=== PATIENT | male | born 1960 | race Caucasian/White ===

== ENCOUNTER → 2020-08-09 13:37 | Outpatient (CLI) | payer BC, SELFPAY ==
[2020-08-09 15:58] LABS: COVID19 -Nasal RAPID Negative (Negative)
== END ==
PROVIDERS: Visit Provider Physician Assistant
DX: R51.9 Headache, unspecified (principal)
CPT/HCPCS: 87635

== ENCOUNTER → 2020-08-11 12:04 | Outpatient (CLI) | payer BC, SELFPAY ==
[2020-08-11 13:01] LABS: Add Manual Diff / Slide Review NO; Basophils Absolute Auto 100 /uL (0-100); Basophils Percent Auto 1.1 % (0-2); Eosinophils Absolute Auto 200 /uL (0-450); Hematocrit 44.2 % (41-53); Hemoglobin 14.9 g/dL (13.5-17.5); Lymphocytes Absolute Auto 1500 /uL (1100-4500); Lymphocytes Percent Auto 26.2 % (25-40); Mean Corpuscular HGB Conc 33.7 % (30-36); Mean Corpuscular Hemoglobin 29.5 PG (26-34); Mean Corpuscular Volume 87.4 fL (80-100); Monocytes Absolute Auto 500 /uL (0-900); Monocytes Percent Auto 7.9 % (3-14); Neutrophils Absolute Auto 3600 /uL (1500-7000); Neutrophils Percent Auto 61.8 % (50-75); Platelet Count 214 X10^3/uL (150-400); Red Blood Cell Count 5.06 X10^6/uL (4.5-5.9); Red Cell Distribution Width 13.6 % (11.6-14.8); White Blood Cell Count 5.9 X10^3/uL (4.5-11.0)
[2020-08-11 13:12] LABS: Hemoglobin A1C% w Est Avg Glu 5.6 % (4.0-6.0)
[2020-08-11 13:39] LABS: Alanine Aminotransferase 21 IU/L (<50); Albumin 4.4 g/dL (3.5-5.0); Albumin Globulin Ratio 1.3 (1.0-2.8); Alkaline Phosphatase 40 U/L (38-126); Aspartate Aminotransferase 27 IU/L (17-59); BUN Creatinine Ratio 17.9 (6-22); Bilirubin Total 0.4 mg/dL (0.2-1.3); Blood Urea Nitrogen 20 mg/dL (9-20); Calcium 9.3 mg/dL (8.4-10.2); Carbon Dioxide 25 mmol/L (22-32); Chloride 107 mmol/L (98-107); Cholesterol 248 mg/dL (140-199); Estimated Glomerular Filt Rate > 60.0 mL/min (>60); Globulin 3.5 g/dL (1.7-4.1); Glucose 97 mg/dL (70-100); HDL Cholesterol 44 mg/dL (40-60); HEMOLYSIS < 15 (0-50); LDL Cholesterol Calculated 157 mg/dL (<100); Potassium 4.6 mmol/L (3.4-5.1); Sodium 139 mmol/L (137-145); Total Protein 7.9 g/dL (6.3-8.2); Triglycerides 233 mg/dL (35-150)
[2020-08-11 14:06] LABS: Prostate Specific Antigen Scrn 0.754 ng/mL (0.1-4.0)
== END ==
PROVIDERS: PCP Registered Nurse; Referring Provider Registered Nurse; Visit Provider Registered Nurse
DX: Z00.00 Encounter for general adult medical examination without abnormal findings (principal); R51.9 Headache, unspecified; Z12.5 Encounter for screening for malignant neoplasm of prostate; I10 Essential (primary) hypertension; R73.03 Prediabetes; Z82.49 Family history of ischemic heart disease and other diseases of the circulatory system
CPT/HCPCS: 36415; 80053; 80061; 83036; 85025; G0103

== ENCOUNTER 2020-09-17 18:39 | Observation (INO) | payer BC, SELFPAY ==
[2020-09-17] VITALS (7 sets, daily range): BP systolic 121–144; BP diastolic 65–77; PULSE 81–90; RESP 14–20; TEMP 36.6–36.7; O2SAT 97–100; BMI 31.1; BMI 30.9
--- NOTE | 2020-09-17 19:04 | DI.US.S_ITS ---
PROCEDURE: US ABDOMEN LIMITED INDICATIONS: ruq TECHNIQUE: Real-time focused scanning was performed of the abdomen, with image documentation. COMPARISON: None. FINDINGS: The liver is moderately hyperechoic and difficult to penetrate with ultrasound. The size is normal. The margin is not well seen. There are tiny stones layering dependently in the proximal gallbladder. The wall is of normal thickness at 1.9 mm. According to the technologist there was a positive sonographic Perez's sign. No pericholecystic fluid. The common duct is normal caliber at 3 mm. IMPRESSION: 1. Cholelithiasis with equivocal findings for acute cholecystitis. Lack of wall thickening is present though there may be early cholecystitis. 2. Moderate hepatic steatosis or other intrinsic liver disease. Dictated by: Eva Chowdary M.D. on 09/17/2020 at 21:12 Approved by: Eva Chowdary M.D. on 09/17/2020 at 21:14
--- NOTE | 2020-09-17 19:07 | PC.NURSE ---
Ignore discharge note at 1900, charted on wrong pt.
[2020-09-17 19:18] LABS: Add Manual Diff / Slide Review NO; Basophils Absolute Auto 0 /uL (0-100); Basophils Percent Auto 0.4 % (0-2); Eosinophils Absolute Auto 200 /uL (0-450); Eosinophils Percent Auto 1.6 % (2-4); Hematocrit 44.3 % (41-53); Hemoglobin 14.8 g/dL (13.5-17.5); Lymphocytes Absolute Auto 1400 /uL (1100-4500); Lymphocytes Percent Auto 14.2 % (25-40); Mean Corpuscular HGB Conc 33.3 % (30-36); Mean Corpuscular Hemoglobin 29.3 PG (26-34); Mean Corpuscular Volume 87.9 fL (80-100); Monocytes Absolute Auto 800 /uL (0-900); Monocytes Percent Auto 8.2 % (3-14); Neutrophils Absolute Auto 7400 /uL (1500-7000); Neutrophils Percent Auto 75.6 % (50-75); Platelet Count 218 X10^3/uL (150-400); Red Blood Cell Count 5.05 X10^6/uL (4.5-5.9); Red Cell Distribution Width 13.6 % (11.6-14.8); White Blood Cell Count 9.8 X10^3/uL (4.5-11.0)
[2020-09-17 19:23] LABS: Prothrombin Time 10.9 SECONDS (10.1-12.7)
[2020-09-17 19:26] LABS: PTT Partial Thromboplastin Tim 31 SECONDS (26.4-36.2)
[2020-09-17 19:28] LABS: Alanine Aminotransferase 189 IU/L (<50); Albumin 4.6 g/dL (3.5-5.0); Albumin Globulin Ratio 1.3 (1.0-2.8); Alkaline Phosphatase 67 U/L (38-126); Aspartate Aminotransferase 225 IU/L (17-59); BUN Creatinine Ratio 17.9 (6-22); Bilirubin Total 1.2 mg/dL (0.2-1.3); Blood Urea Nitrogen 20 mg/dL (9-20); Calcium 10.6 mg/dL (8.4-10.2); Carbon Dioxide 30 mmol/L (22-32); Chloride 101 mmol/L (98-107); Estimated Glomerular Filt Rate > 60.0 mL/min (>60); Globulin 3.5 g/dL (1.7-4.1); Glucose 114 mg/dL (70-100); HEMOLYSIS < 15 (0-50); Lipase 146 U/L (23-300); Sodium 137 mmol/L (137-145); Total Protein 8.1 g/dL (6.3-8.2)
--- NOTE | 2020-09-17 20:42 | ED_ITS ---
HPI - Abdominal Pain General Chief Complaint: Abdominal Pain Stated Complaint: Upset stomach, thinks galbladder Time Seen by Provider: 09/17/20 19:04 Source: patient Mode of arrival: Ambulatory Limitations: no limitations History of Present Illness HPI narrative: Patient is a 59-year-old male who presents with epigastric and right upper quadrant pain which started today. It seems to radiate right around to his back. He has no chest pain or shortness of breath. He occasionally has felt nauseated but no vomiting. Pain is currently much better than what it was previously. MD complaint: abdominal pain Pain Consistency: intermittent and now resolved Quality: stabbing and aching Radiation: back Migration to: no migration Relieving factors: nothing Related Data Home Medications Medication Instructions Recorded Confirmed fluticasone propionate 45 2 puff INHALATION BID PRN g 08/25/20 09/17/20 mcg-salmeterol 21 mcg/actuation HFA inhaler ascorbate calcium (vitamin C) 500 mg PO DAILY 09/17/20 09/17/20 cholecalciferol (vitamin D3) 5,000 unit PO DAILY 09/17/20 09/17/20 [Vitamin D3] Previous Rx's Medication Instructions Recorded albuterol sulfate 90 mcg/actuation 2 puff INHALATION Q4-6H PRN #18 g 08/11/20 aerosol inhaler losartan 50 mg tablet 50 mg PO DAILY 30 Days #30 tab 08/11/20 simvastatin 20 mg tablet 20 mg PO BEDTIME 30 Days #30 tab 08/11/20 Allergies Allergy/AdvReac Type Severity Reaction Status Date / Time No Known Drug Allergies Allergy Verified 09/17/20 18:46 Review of Systems Review of Systems Narrative: GENERAL: Denies chills, fatigue, malaise, fever, sweats, travel HEENT: Denies sinus pain, ear pain, sore throat, difficulty swallowing, neck pain RESPIRATORY: Denies dyspnea, cough, wheezing, hemoptysis, sputum. CARDIOVASCULAR: Denies chest pain, palpitations, orthopnea, edema GASTROINTESTINAL: See HPI : Denies dysuria, frequency, incontinence, hematuria, urinary retention, flank pain. MUSCULOSKELETAL: Denies weakness, joint pain, or bony pain SKIN: No rash, no erythema, no pruritus NEUROLOGIC: Denies weakness, dizziness, headache, numbness, change in speech, confusion PSYCHIATRIC: No concerning psychosocial issues. 12 point review of systems is negative except for those stated above and HPI Patient History Medical History (Updated 09/17/20 @ 21:47 by Kathi Roberts DO) Asthma (~1962) Essential hypertension Fractures (~1994) Mixed dyslipidemia No active medical problems Shoulder pain (~2017) Tinnitus (~2013) Surgical History Anesthesia History of knee surgery History of sinus surgery (~2011) History of umbilical hernia repair (~2009) Family History (Updated 09/17/20 @ 21:09 by Nima Graff MD) Father History of heart disease Mother Diabetes mellitus Social History household members: spouse Smoking Status: Former smoker alcohol intake: current Smoking Status: Unknown if ever smoked alcohol intake frequency: a few times a month Substance Use Type: does not use Exam Initial Vital Signs Initial Vital Signs: Vital Signs Temperature 98.1 F 09/17/20 18:46 Pulse Rate 90 09/17/20 18:46 Respiratory Rate 20 09/17/20 18:46 Blood Pressure 144/70 H 09/17/20 18:46 Pulse Oximetry 97 09/17/20 18:46 GENERAL: Well-appearing, well-nourished and in no acute distress. HEENT: Head atraumatic,EOMI, pupils reactive, face symmetric, moist mucous membranes CARDIOVASCULAR: Regular rate and rhythm without murmurs, rubs or gallops. RESPIRATORY: Breath sounds equal bilaterally, no wheezes rales or rhonchi. ABDOMEN: Soft, positive Perez sign tender right upper quadrant no guarding or rebound EXTREMITIES: Normal range of motion, no clubbing or edema. Neurovascularly intact NEUROLOGICAL: Alert and oriented x4.Normal gait and speech. Cranial nerves II through XII grossly intact. SKIN: Warm, dry, no laceration, no petechiae, no rashes or lesions. Course Orders Ordered: ED Orders 09/17/20 18:47 EKG-12 Lead Stat 09/17/20 19:04 US abdomen limited Stat Complete Blood Count AUTO DIFF Stat Comprehensive Metabolic Panel Stat Lipase Stat Partial Thromboplastin Time Stat Prothrombin Time INR Stat Albuterol (Albuterol 2.5 Mg/3 Ml Neb (Adult)) 2.5 mg INH [id number] JACQUI Hydromorphone HCl (Hydromorphone 1 Mg Inj) 1 mg IV Q4H PRN PRN Reason: Pain, Moderate (4-6) Lactated Ringer's (Lactated Ringers) 1,000 mls @ 125 mls/hr IV CONT [facility] Last Admin: 09/17/20 22:13 Dose: 125 mls/hr Documented by: KIERAN Cefotetan Disodium 2 gm/ (Sodium Chloride) 100 mls @ 200 mls/hr IV Q12H [facility] Last Admin: 09/17/20 22:12 Dose: 200 mls/hr Documented by: KIERAN Ondansetron HCl (Ondansetron 4 Mg/2 Ml Inj) 4 mg IV Q4HR PRN PRN Reason: Nausea And Vomiting Simvastatin (Simvastatin 20 Mg Tablet) 20 mg PO BEDTIME [facility] Last Admin: 09/17/20 22:12 Dose: 20 mg Documented by: KIERAN Discontinued Medications Enoxaparin Sodium (Enoxaparin 40 Mg/0.4 Ml Syringe) 40 mg SUBCUT NOW ONE Stop: 09/17/20 21:41 Last Admin: 09/17/20 22:12 Dose: 40 mg Documented by: KIERAN Vital Signs Vital signs: Vital Signs - 8 hr 09/17/20 18:46 09/17/20 19:12 09/17/20 19:30 Temperature 98.1 F Pulse Rate 90 86 83 Respiratory Rate 20 19 16 Blood Pressure 144/70 H Pulse Oximetry 97 100 97 09/17/20 20:00 09/17/20 20:30 09/17/20 20:41 Temperature Pulse Rate 81 87 83 Respiratory Rate 14 18 16 Blood Pressure 121/65 Pulse Oximetry 97 98 97 MDM - Abdominal Pain Lab Data Attestation: I reviewed the patient's lab results. Result diagrams: 09/17/20 19:04 09/17/20 19:04 Labs: Lab Results 09/17/20 09/17/20 09/17/20 Range/Units 19:04 19:04 19:04 WBC 9.8 (4.5-11.0) X10^3/uL RBC 5.05 (4.5-5.9) X10^6/uL Hgb 14.8 (13.5-17.5) g/dL Hct 44.3 (41-53) % MCV 87.9 (80-100) fL MCH 29.3 (26-34) PG MCHC 33.3 (30-36) % RDW 13.6 (11.6-14.8) % Plt Count 218 (150-400) X10^3/uL Neut % (Auto) 75.6 H (50-75) % Lymph % (Auto) 14.2 L (25-40) % [place] % (Auto) 8.2 (3-14) % Eos % (Auto) 1.6 L (2-4) % Baso % (Auto) 0.4 (0-2) % Neut # (Auto) 7400 H (0372-5849) /uL Lymph # (Auto) 1400 (7154-8538) /uL [place] # (Auto) 800 (0-900) /uL Eos # (Auto) 200 (0-450) /uL Baso # (Auto) 0 (0-100) /uL PT 10.9 (10.1-12.7) SECONDS INR 1.0 (0.9-1.3) APTT 31 (26.4-36.2) SECONDS Sodium 137 (137-145) mmol/L Potassium 4.0 (3.4-5.1) mmol/L Chloride 101 (98-107) mmol/L Carbon Dioxide 30 (22-32) mmol/L BUN 20 (9-20) mg/dL Creatinine 1.12 (0.66-1.25) mg/dL Estimated GFR > 60.0 (>60) mL/min BUN/Creatinine Ratio 17.9 (6-22) Glucose 114 H (70-100) mg/dL Calcium 10.6 H (8.4-10.2) mg/dL Total Bilirubin 1.2 (0.2-1.3) mg/dL AST 225 H (17-59) IU/L ALT 189 H (<50) IU/L Alkaline Phosphatase 67 (38-126) U/L Total Protein 8.1 (6.3-8.2) g/dL Albumin 4.6 (3.5-5.0) g/dL Globulin 3.5 (1.7-4.1) g/dL Albumin/Globulin Ratio 1.3 (1.0-2.8) Lipase 146 (23-300) U/L Point of care testing: Urine Dip Bedside Urine Glucose Negative Bedside Urine Bilirubin - Negative Bedside Urine Ketone - Negative Urine Specific [place] 1.025 Bedside Urine Occult Blood - Negative Bedside Urine pH 6.0 Bedside Urine Protein - Negative Bedside Urine Urobilinogen +/- 1mg Bedside Urine Nitrite - Negative Bedside Urine Leukocytes - Negative Esterase Imaging Data US - abdomen: Radiologist's Impression: PROCEDURE: US ABDOMEN LIMITED INDICATIONS: ruq TECHNIQUE: Real-time focused scanning was performed of the abdomen, with image documentation. COMPARISON: None. FINDINGS: The liver is moderately hyperechoic and difficult to penetrate with ultrasound. The size is normal. The margin is not well seen. There are tiny stones layering dependently in the proximal gallbladder. The wall is of normal thickness at 1.9 mm. According to the technologist there was a positive sonographic Perez's sign. No pericholecystic fluid. The common duct is normal caliber at 3 mm. IMPRESSION: 1. Cholelithiasis with equivocal findings for acute cholecystitis. Lack of wall thickening is present though there may be early cholecystitis. 2. Moderate hepatic steatosis or other intrinsic liver disease. Dictated by: Eva Chowdary M.D. on 09/17/2020 at 21:12 ECG Data Attestation: I personally reviewed and interpreted this ECG as follows: Prior ECG tracings: not available for review Interpretation: Normal sinus rhythm rate 85 p.r. interval 162 QRS [address] changes or T-wave inversions MDM Narrative Medical decision making narrative: Patient is not currently having any abdominal pain is overall feeling much better. Ultrasound does confirm a cholelithiasis with acute cholecystitis. He is afebrile without leukocytosis. Liver enzymes are elevated bilirubin is within normal limits. Dr. Graff is in ED to see and evaluate patient and will admit patient. Discharge Plan Departure Patient Disposition: Admitted As Inpatient Clinical Impression: Cholelithiasis Qualifiers: Cholelithiasis location: other site Biliary obstruction: without biliary obstruction Qualified Code(s): K80.80 - Other cholelithiasis without obstruction Admit Date/Time: 09/17/20 20:59 Admit Provider: Nima Graff
--- NOTE | 2020-09-17 21:05 | PM.HP.1 ---
History of Present Illness History of Present Illness Date Patient Seen: 09/17/20 Time Patient Seen: 21:05 Date of Onset of Symptoms: 09/17/20 Chief complaint: Upset stomach, thinks galbladder Narrative: The patient is a gentleman who developed epigastric pain earlier today the progressively became worse and radiated to his right upper quadrant and right side. He has had intermittent pain for months but nothing quite this severe. Usually it was epigastric pain and that was transient and lasted a short period and gradually faded. This however was persistent and worsening and therefore he came to the emergency room. When he would lay down he became nauseated and sitting up he felt better. He never vomited. Last solid food was earlier today. He has been drinking water through the day. The only prior operation on his abdomen was an umbilical hernia repair. He did have a colonoscopy for screening purposes about 7 years it was normal. He has never been jaundiced. Patient History Medical History (Updated 09/17/20 @ 21:25 by Nima Graff MD) Asthma (~1962) Essential hypertension Fractures (~1994) Mixed dyslipidemia No active medical problems Shoulder pain (~2017) Tinnitus (~2013) Surgical History Anesthesia History of knee surgery History of sinus surgery (~2011) History of umbilical hernia repair (~2009) Family & Social History Family History (Updated 09/17/20 @ 21:09 by Nima Graff MD) Father History of heart disease Mother Diabetes mellitus Safety & Behavioral: Feels Safe in Current Yes Environment Been Physically Hurt or No Threatened By a Person Tobacco & Substance use: Smoking Status Unknown if ever smoked alcohol intake frequency a few times a month Substance Use Type does not use Meds Home Medications and Allergies Home Medications Medication Instructions Recorded Confirmed Type albuterol sulfate 90 mcg/actuation 2 puff INHALATION Q4-6H PRN #18 g 08/11/20 09/17/20 Rx aerosol inhaler losartan 50 mg tablet 50 mg PO DAILY 30 Days #30 tab 08/11/20 09/17/20 Rx simvastatin 20 mg tablet 20 mg PO BEDTIME 30 Days #30 tab 08/11/20 09/17/20 Rx fluticasone propionate 45 2 puff INHALATION BID PRN g 08/25/20 09/17/20 History mcg-salmeterol 21 mcg/actuation HFA inhaler Allergies Allergy/AdvReac Type Severity Reaction Status Date / Time No Known Drug Allergies Allergy Verified 09/17/20 18:46 Review of Systems Review of Systems Narrative: Patient wears glasses. He denies double vision or pain in his eyes. No earaches or sore throats. No trouble swallowing. No tooth aches. He has a fractured filling right now. Patient does suffer from seasonal asthma. He thinks it is related to allergens. No cough or cold. No heart murmurs chest pain or heart problems. He actually had a stress test a few years ago that he reports was normal. Patient denies black or bloody bowel movements. No dysuria hematuria or history of kidney stones. He has noticed recently that he has urgency when urinating. He occasionally gets up in the middle the night after about 6 hours of sleep. No seizures or blackouts. No anxiety BD does suffer from mild depression and but is not taking medication for it. He does see a mental health provider however. Patient has no unusual bruising or bleeding. No unusual skin conditions or itching. He has no problems with this thyroid pancreas that he is aware of. Exam Vital Signs (past 8 hours): - 09/17/20 18:46 09/17/20 19:12 09/17/20 19:30 Temperature 98.1 F Pulse Rate 90 86 83 Respiratory Rate 20 19 16 Blood Pressure 144/70 H Pulse Oximetry 97 100 97 09/17/20 20:00 09/17/20 20:30 09/17/20 20:41 Temperature Pulse Rate 81 87 83 Respiratory Rate 14 18 16 Blood Pressure 121/65 Pulse Oximetry 97 98 97 Oxygen Delivery Method Room Air Narrative Exam Narrative: Cooperative gentleman no apparent distress. Eyes are nonicteric. Pupils equal round reactive to light. Conjunctiva pink. Ears without lesion. Nasal septum is midline. Oral mucosa is a little dry. Furrows noted in his tongue. Neck is some what full. I feel no nodes in the neck or supraclavicular areas. Trachea is midline mobile. No obvious enlargement or tenderness in his thyroid. His lungs are clear to auscultation without rales or rhonchi. Equal to percussion. Heart regular rate and rhythm without murmur gallop. No bruit in the neck. No heave lift or thrill. Patient has bilateral gynecomastia. Abdomen is rounded protuberant and soft. He may have some slight tenderness in the right upper quadrant with deep palpation. No ventral hernias appreciated. Liver and spleen are not palpably enlarged though his size would preclude anything but the most obvious abnormality. His extremities are without cyanosis clubbing or edema. He is somewhat hirsute. No open lesions of his skin. Skin texture and turgor is 2+. He is alert and oriented x3. Speech rate and content are appropriate. Affect is appropriate. Objective Imaging US - abdomen: My impression: Thin walled gallbladder with multiple small stones in the distal gallbladder. Labs Result Diagrams: 09/17/20 19:04 09/17/20 19:04 Labs: Laboratory Results - last 24 hr 09/17/20 09/17/20 09/17/20 19:04 19:04 19:04 WBC 9.8 RBC 5.05 Hgb 14.8 Hct 44.3 MCV 87.9 MCH 29.3 MCHC 33.3 RDW 13.6 Plt Count 218 Neut % (Auto) 75.6 H Lymph % (Auto) 14.2 L [place] % (Auto) 8.2 Eos % (Auto) 1.6 L Baso % (Auto) 0.4 Neut # (Auto) 7400 H Lymph # (Auto) 1400 [place] # (Auto) 800 Eos # (Auto) 200 Baso # (Auto) 0 PT 10.9 INR 1.0 APTT 31 Sodium 137 Potassium 4.0 Chloride 101 Carbon Dioxide 30 BUN 20 Creatinine 1.12 Estimated GFR > 60.0 BUN/Creatinine Ratio 17.9 Glucose 114 H Calcium 10.6 H Total Bilirubin 1.2 AST 225 H ALT 189 H Alkaline Phosphatase 67 Total Protein 8.1 Albumin 4.6 Globulin 3.5 Albumin/Globulin Ratio 1.3 Lipase 146 Assessment & Plan Assessment and plan (1) Essential hypertension: Problem details: Continue losartan Status: Chronic (2) Mixed dyslipidemia: Problem details: Continue simvastatin Status: Chronic (3) Asthma: Problem details: Seasonal. Will treat with albuterol nebulizer preoperatively. Qualifiers: Asthma severity: mild Asthma persistence: intermittent Asthma complication type: uncomplicated Qualified Code(s): J45.20 - Mild intermittent asthma, uncomplicated Status: Chronic (4) Cholelithiasis and cholecystitis without obstruction: Problem details: Patient has classic symptomatology for gallbladder disease and ultrasound showing stones. It is possible that he has an obstructed cystic duct though it is not clear from the study. I suspect that this is a chronic problem though he may have an acute exacerbation. I have talked to him about his options which include going home and having his operation an elective fashion and adjusting his diet or staying and having the operation which would be my recommendation given his acute pain and the likelihood of recurrence with delay. Also has elevated liver function tests are bit worrisome to me that was bilirubin is normal. I have talked to him about a laparoscopic cholecystectomy and possible/probable cholangiogram. Risks of bleeding, infection, hernia at the incision near the umbilicus, injury to internal organs or ducts which would require major operation to repair, and bile leakage were all discussed with him. I discussed possible consequences of removing his gallbladder such as diarrhea or intolerance to certain foods which are usually self-limited though not always. I talked to him about restrictions on his activity after the operation. 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 All questions were answered and he wished to proceed. He has been placed on the OR schedule for tomorrow. Status: Acute
[2020-09-17] MEDS: CEFOTETAN 2 GM in SODIUM CHLORIDE 0.9% 100 ML 200 ML IV (22:12)
[2020-09-17] MEDS: SIMVASTATIN 20 MG TABLET PO (22:12)
[2020-09-17] MEDS: ENOXAPARIN 40 MG/0.4 ML SYRINGE SUBCUT (22:12)
[2020-09-17] MEDS: LACTATED RINGERS 1,000 ML 125 ML IV (22:13)
[2020-09-17 22:16] LABS: COVID19 -Nasal RAPID Negative (Negative)
[2020-09-18] VITALS (21 sets, daily range): BP systolic 92–140; BP diastolic 42–85; PULSE 73–117; RESP 10–20; TEMP 36.4–37.4; O2SAT 90–97; BMI 30.9
--- NOTE | 2020-09-18 | PATH_ITS ---
[facility] Accession Number: [id number] . 01 Material submitted: . gallbladder - GALLBLADDER . 02 Diagnosis: Gallbladder, Cholecystectomy: Chronic cholecystitis with cholelithiasis. Negative for dysplasia or malignancy. [facility] 09/24/2020 1329 Local . 02 Electronically signed: . Iris Perez MD, Pathologist NPI- [id number] . 01 Gross description: . The specimen is received in formalin, labeled gallbladder and consists of a 7.5 x 4.0 x 3.0 cm intact gallbladder with a 0.2 cm in diameter cystic duct. The serosa is scott-green and smooth. Opening reveals green viscous bile with multiple black, smooth to multifaceted choleliths ranging from 0.5 to 1.0 cm. The mucosa is scott-green and velvety. The wall thickness measures 0.2 cm. A 0.5 x 0.4 x 0.2 cm scott-pink pericystic lymph node is identified. [employer] sections are submitted, to include the en face cystic duct margin and intact lymph node, in cassette A1. ([id number]) /[facility] 09/22/2020 1622 Local . 02 Pathologist provided ICD-10: K80.10 . 02 CPT . 762124 Performed at: 01 [facility] [address], [place], [place] [id number] MD Kar Aguilar MD Phone: [phone] Performed at: 02 [facility] [address] [place], [place] [id number] MD Iris Perez MD Phone: [phone]
--- NOTE | 2020-09-18 | DI.RAD.S_ITS ---
PROCEDURE: XR CHOLANGIOGRAM OPERATIVE INDICATIONS: CHOLANGIOGRAM COMPARISON: [facility], , US ABDOMEN LIMITED, 09/17/2020, 19:39. FINDINGS: Biliary ducts: The surgeon injected contrast into the biliary ducts after cannulation of the cystic duct stump. Visualized intra- and extrahepatic bile ducts are normal in caliber, without strictures. No intraluminal filling defects to suggest retained ductal stones or sludge. No evidence for iatrogenic ductal injury. Duodenum: Contrast flows promptly through the sphincter of Oddi into the duodenum, which appears normal in caliber. IMPRESSION: Normal intraoperative cholangiogram. Dictated by: Tara Ayala M.D. on 09/18/2020 at 9:32 Approved by: Tara Ayala M.D. on 09/18/2020 at 9:36
--- NOTE | 2020-09-18 06:03 | RT ---
Went to give pt's 0700 albuterol. Pt declined and would like to have it as PRN. Pt is not in respiratory distress, RA SpO2 98%. Clear BS t/o. Recommending to change albuterol frequency to PRN.
[2020-09-18 06:26] LABS: Add Manual Diff / Slide Review NO; Basophils Absolute Auto 0 /uL (0-100); Basophils Percent Auto 0.6 % (0-2); Eosinophils Absolute Auto 100 /uL (0-450); Eosinophils Percent Auto 2.5 % (2-4); Hematocrit 45.2 % (41-53); Hemoglobin 14.9 g/dL (13.5-17.5); Lymphocytes Absolute Auto 1100 /uL (1100-4500); Lymphocytes Percent Auto 21.4 % (25-40); Mean Corpuscular HGB Conc 32.9 % (30-36); Mean Corpuscular Hemoglobin 28.9 PG (26-34); Mean Corpuscular Volume 87.8 fL (80-100); Monocytes Absolute Auto 500 /uL (0-900); Monocytes Percent Auto 10.2 % (3-14); Neutrophils Absolute Auto 3400 /uL (1500-7000); Neutrophils Percent Auto 65.3 % (50-75); Platelet Count 190 X10^3/uL (150-400); Red Blood Cell Count 5.14 X10^6/uL (4.5-5.9); Red Cell Distribution Width 13.4 % (11.6-14.8); White Blood Cell Count 5.2 X10^3/uL (4.5-11.0)
[2020-09-18 06:35] LABS: Alanine Aminotransferase 356 IU/L (<50); Albumin Globulin Ratio 1.3 (1.0-2.8); Alkaline Phosphatase 58 U/L (38-126); Aspartate Aminotransferase 267 IU/L (17-59); BUN Creatinine Ratio 13.3 (6-22); Bilirubin Total 0.8 mg/dL (0.2-1.3); Blood Urea Nitrogen 14 mg/dL (9-20); Calcium 9.7 mg/dL (8.4-10.2); Carbon Dioxide 31 mmol/L (22-32); Chloride 104 mmol/L (98-107); Estimated Glomerular Filt Rate > 60.0 mL/min (>60); Globulin 3.1 g/dL (1.7-4.1); Glucose 109 mg/dL (70-100); HEMOLYSIS < 15 (0-50); Potassium 4.2 mmol/L (3.4-5.1); Sodium 137 mmol/L (137-145); Total Protein 7.1 g/dL (6.3-8.2)
[2020-09-18] MEDS: LACTATED RINGERS 1,000 ML 125 ML IV (07:43)
--- NOTE | 2020-09-18 07:53 | PC.NURSE ---
Addendum entered by Anabela Harrison R.N. 09/18/20 14:04: 1128: Received patient from PACU, awake, alert, and pleasantly cooperative. Tolerating fluids, no nausea or vomiting. No C/O pain. VSS and afebrile. 1400: Up OOB ambulating independently in room. Awaiting for urine output. Original Note: Day shift note: 729 Patient transferred to surgery with Shweta RN, awake, alert, and cooperative. SL, continue NPO.
[2020-09-18] MEDS: CEFAZOLIN 2 GM/100 ML FROZ.PIGGY IV (08:22)
--- NOTE | 2020-09-18 08:33 | SUR.OPER ---
Supine on padded OR bed, head on pillow, safety belt at thigh, left arm padded and tucked at side. Right arm secured on padded arm oard <90 degrees abduction. Legs uncrossed. Padded footboard in place. Tape over blanket to secure lower legs.
[2020-09-18] MEDS: BUPIVACAINE 0.5% (PF) VIAL 30 ML INJ (08:49)
[2020-09-18] MEDS: IOPAMIDOL 15 ML VIAL INJ (08:54)
--- NOTE | 2020-09-18 09:57 | PM.OP.1 ---
Operative Date/Time/Diagnoses Date of procedure: 09/18/20 Time of procedure: 09:58 Pre-op diagnosis: Cholelithiasis with cholecystitis Post-op diagnosis: same Procedure & Clinicians Procedure: Laparoscopic cholecystectomy with intraoperative cholangiogram Same procedure as scheduled: Yes Indications: Patient with right upper quadrant pain gallstones. Elevated liver function tests. Surgeon: Nima Graff Click Yes if Unassisted: Yes Anesthesia Type: General Operative Notes Findings: Normal cholangiogram. Inflamed gallbladder. Minimal adhesions the surface of the gallbladder with omentum. Closure Type: primary Specimen(s): other (Gallbladder and contents) Prosthetic devices, grafts, tissues, transplants, or devices: None Estimated Blood Loss (mL): 5 Blood products transfused: none Procedure in detail: The patient was placed supine on the operating room table and underwent general endotracheal anesthesia. The patient was prepped and draped in the usual fashion. Local anesthetic was infiltrated above the umbilicus and vertical incision made and carried down through fascia into the peritoneal cavity. Stay sutures of 0 Vicryl were placed in the fascia. A 12 mm port was placed. The abdomen was insufflated. The patient was repositioned. Local anesthetic was infiltrated in 3 areas under the right costal margin and 3 small incisions made followed by placing 3 5 mm ports under direct laparoscopic camera vision internally. The gallbladder was grasped and elevated. Dissection was begun near its end. Omentum was taken down bluntly off the surface of the gallbladder. I isolated what appeared to be the cystic duct from surrounding structures. Clip was placed at its junction with the gallbladder. A small leeann was intentionally made in the cystic duct and a cholangiocatheter inserted. A cholangiogram was performed that showed a normal sized ductal system with normal distal tapering and free flow into the duodenum. There were no filling defects seen. Multiple clips were placed across the duct and it was divided leaving those in the patient. I encountered at least 2 vascular structures that clips were applied to and they were divided leaving at least 2 on each structure. . The gallbladder was then dissected from its bed in the liver using cautery. It was detached and removed through the umbilical port. The right upper quadrant was irrigated and suctioned free of fluid. Meticulous hemostasis was achieved. There was no bile leakage. I removed the ports and air from the abdomen. The port sites were all irrigated. The stay sutures at the umbilicus were elevated. A 2 0 PDS suture was placed between them. The Vicryl and PDS sutures were then tied. The skin in all areas was closed with interrupted 4 0 Vicryl subcuticular stitches. Steri-Strips and Mastisol were applied. Band-Aids were placed and the patient was awakened, extubated and taken to the recovery area in good condition. Complications: none Post-operative Condition: stable Disposition: PACU
--- NOTE | 2020-09-18 10:16 | SUR.PHASEI ---
Received to PACU after general anesthesia. Report received from FRANCO Andrade and Dr Quiñones. Oral airway in place. O2 sats on room air 88%. Mild obstruction noted. Jaw thrust performed. Placed on 6L NC with O2 sats up to 90%. Placed on 12L simple mask with O2 sats 90-92%. Oral airway removed at 1011. No longer requiring jaw thrust. Mild snoring noted. Good air movement auscultated. O2 sats 94% on 12L simple mask.
[2020-09-18] MEDS: HYDROMORPHONE 2 MG INJ IV ×2 (10:44→10:49)
[2020-09-18] MEDS: OXYCODONE IR 5 MG TABLET PO (10:46)
--- NOTE | 2020-09-18 10:59 | SUR.PHASEI ---
1030 - , Anahi, updated on status and plan for discharge.
--- NOTE | 2020-09-18 15:34 | CM.IDA ---
Patient is a 59 yo male, admitted observation for dyan logan w/ Dr Graff this morning. Patient off floor for surgery upon this BRICK BURNER HEAD's arrival. Patient is indp and active at baseline and is expected to DC back home w/spouse this afternoon. No needs identified by this BRICK BURNER HEAD JW
--- NOTE | 2020-09-18 16:15 | PC.NURSE ---
Discharge education provided. Pt verbalized understanding of all instructions and follow-up care. HR 110-115. Pt symptomatic and requests to proceed with discharge to home. Instructed to call surgeon if and s/s of tachycardia occur. Pt escorted out via w/c with all personal belongings. Pt left in stable condition.
== END 2020-09-18 16:15 | disposition home or self-care (01) ==
LOC: ED 19:07 → AC 21:00
PROVIDERS: Admitting Provider Specialist; Emergency Provider Emergency Medicine; PCP Registered Nurse; Referring Provider Emergency Medicine; Visit Provider Specialist
PROC: 0FT44ZZ Resection of Gallbladder, Percutaneous Endoscopic Approach (ICD-10-PCS; CPT 47562; principal; 2020-09-18 08:15)
DX: K80.10 Calculus of gallbladder with chronic cholecystitis without obstruction (principal); J45.20 Mild intermittent asthma, uncomplicated; R10.11 Right upper quadrant pain; I10 Essential (primary) hypertension; E78.5 Hyperlipidemia, unspecified; K82.8 Other specified diseases of gallbladder
CPT/HCPCS: 47563; 36415; 74300; 76000; 76705; 80053; 81003; 83690; 85025; 85610; 85730; 87635; 93005; 93010; 94760; 96361; 96372; 96374; 99219; 99284; C9803; G0378; J0330; J0690; J1100; J1170; J1650; J1885; J2250; J2405; J2704; J3010

== ENCOUNTER → 2020-11-19 13:48 | Outpatient (CLI) | payer BC, SELFPAY ==
[2020-09-17 21:28] VITALS: BMI 30.9
[2020-11-19 14:47] LABS: Alanine Aminotransferase 23 IU/L (<50); Albumin 4.6 g/dL (3.5-5.0); Albumin Globulin Ratio 1.4 (1.0-2.8); Alkaline Phosphatase 50 U/L (38-126); Aspartate Aminotransferase 29 IU/L (17-59); Bilirubin Total 0.4 mg/dL (0.2-1.3); Bilirubin Unconjugated 0.4 mg/dL (0.0-1.1); Blood Urea Nitrogen 18 mg/dL (9-20); Calcium 9.6 mg/dL (8.4-10.2); Carbon Dioxide 23 mmol/L (22-32); Chloride 107 mmol/L (98-107); Creatine Kinase 71 U/L (55-170); Estimated Glomerular Filt Rate > 60.0 mL/min (>60); Globulin 3.3 g/dL (1.7-4.1); Glucose 131 mg/dL (70-100); HEMOLYSIS < 15 (0-50); Potassium 3.9 mmol/L (3.4-5.1); Sodium 140 mmol/L (137-145); Total Protein 7.9 g/dL (6.3-8.2)
[2020-11-19 14:51] LABS: Cholesterol 254 mg/dL (140-199); HDL Cholesterol 41 mg/dL (40-60); LDL Cholesterol Calculated 143 mg/dL (<100); Triglycerides 350 mg/dL (35-150)
== END ==
PROVIDERS: PCP Registered Nurse; Referring Provider Registered Nurse; Visit Provider Registered Nurse
DX: E78.2 Mixed hyperlipidemia (principal); Z82.49 Family history of ischemic heart disease and other diseases of the circulatory system; I10 Essential (primary) hypertension; K80.10 Calculus of gallbladder with chronic cholecystitis without obstruction; R10.11 Right upper quadrant pain; R73.03 Prediabetes
CPT/HCPCS: 36415; 80053; 80061; 80076; 82550

== ENCOUNTER → 2020-11-27 14:45 | Outpatient (CLI) | payer BC, SELFPAY ==
[2020-09-17 21:28] VITALS: BMI 30.9
--- NOTE | 2020-11-27 14:46 | DI.US.S_ITS ---
PROCEDURE: US ABDOMEN LIMITED INDICATIONS: POST ANDREW TENDERNESS TECHNIQUE: Real-time focused scanning was performed of the abdomen, with image documentation. COMPARISON: [facility], US, US ABDOMEN LIMITED, 09/17/2020, 19:39. FINDINGS: The liver demonstrates normal size. The liver demonstrates generalized moderately increased echogenicity. This decreases ultrasound sensitivity for detection of hepatic masses. Status post cholecystectomy. No biliary dilatation. The common bile duct measures 6 mm. The pancreas is not seen, secondary to overlying bowel gas. IMPRESSION: Status post cholecystectomy, without biliary dilatation. The liver demonstrates increased echogenicity. This finding is nonspecific, yet it is most commonly attributed to fatty infiltration. Dictated by: Jori Valenzuela M.D. on 11/27/2020 at 14:12 Approved by: Jori Valenzuela M.D. on 11/27/2020 at 14:14
== END ==
PROVIDERS: PCP Registered Nurse; Referring Provider Registered Nurse; Visit Provider Registered Nurse
DX: R10.11 Right upper quadrant pain (principal); E78.2 Mixed hyperlipidemia; I10 Essential (primary) hypertension; R73.03 Prediabetes; Z90.49 Acquired absence of other specified parts of digestive tract; Z98.890 Other specified postprocedural states
CPT/HCPCS: 76705

== ENCOUNTER → 2021-03-06 10:40 | Outpatient (CLI) | payer BC, SELFPAY ==
[2020-09-17 21:28] VITALS: BMI 30.9
[2021-03-06 11:17] LABS: COVID19 -Nasal RAPID Negative (Negative)
== END ==
PROVIDERS: PCP Registered Nurse; Visit Provider Student in an Organized Health Care Education/Training Program
DX: J02.9 Acute pharyngitis, unspecified (principal); R05 Cough; R09.81 Nasal congestion
CPT/HCPCS: 87635

== ENCOUNTER → 2021-03-06 11:17 | Outpatient (CLI) | payer BC, SELFPAY ==
[2020-09-17 21:28] VITALS: BMI 30.9
--- NOTE | 2021-03-06 11:20 | DI.RAD.S_ITS ---
PROCEDURE: XR CHEST 2V INDICATIONS: productie cough, upper respiratory sx concern for pneumonia TECHNIQUE: 2 views of the chest were acquired. COMPARISON: None. FINDINGS: Surgical changes and devices: None. Lungs and pleura: Lungs are clear. No pleural effusions or pneumothorax. Mediastinum: Mediastinal contours are normal. Heart size is normal. Bones and chest wall: No suspicious bony abnormalities. Soft tissues appear unremarkable. IMPRESSION: No acute process. Dictated by: Yunier Ku M.D. on 03/06/2021 at 11:00 Approved by: Yunier Ku M.D. on 03/06/2021 at 11:00
== END ==
PROVIDERS: PCP Registered Nurse; Referring Provider Student in an Organized Health Care Education/Training Program; Visit Provider Student in an Organized Health Care Education/Training Program
DX: R05 Cough (principal); J02.9 Acute pharyngitis, unspecified; R09.81 Nasal congestion
CPT/HCPCS: 71046; 87635

== ENCOUNTER → 2021-06-10 12:52 | Outpatient (CLI) | payer BC, SELFPAY ==
[2020-09-17 21:28] VITALS: BMI 30.9
== END ==
PROVIDERS: PCP Registered Nurse; Visit Provider Physician Assistant
DX: J31.2 Chronic pharyngitis (principal)
CPT/HCPCS: 87070

== ENCOUNTER → 2022-02-04 08:40 | Outpatient (CLI) | payer BC, SELFPAY ==
[2020-09-17 21:28] VITALS: BMI 30.9
[2022-02-04 09:49] LABS: Hemoglobin A1C% w Est Avg Glu 5.9 % (4.0-6.0)
[2022-02-04 09:55] LABS: Alanine Aminotransferase 25 IU/L (<50); Albumin 4.4 g/dL (3.5-5.0); Albumin Globulin Ratio 1.5 (1.0-2.8); Alkaline Phosphatase 39 U/L (38-126); Aspartate Aminotransferase 26 IU/L (17-59); BUN Creatinine Ratio 15.3 (6-22); Bilirubin Total 0.8 mg/dL (0.2-1.3); Blood Urea Nitrogen 17 mg/dL (9-20); Calcium 8.9 mg/dL (8.4-10.2); Carbon Dioxide 22 mmol/L (22-32); Chloride 108 mmol/L (98-107); Cholesterol 187 mg/dL (140-199); Estimated Glomerular Filt Rate > 60 mL/min (>60); Globulin 2.9 g/dL (1.7-4.1); Glucose 110 mg/dL (70-100); HDL Cholesterol 44 mg/dL (40-60); HEMOLYSIS < 15 (0-50); LDL Cholesterol Calculated 116 mg/dL (<100); Potassium 4.6 mmol/L (3.4-5.1); Sodium 141 mmol/L (137-145); Total Protein 7.3 g/dL (6.3-8.2); Triglycerides 135 mg/dL (35-150)
== END ==
PROVIDERS: PCP Family Medicine; Referring Provider Family Medicine; Visit Provider Family Medicine
DX: E78.2 Mixed hyperlipidemia (principal); I10 Essential (primary) hypertension; R73.03 Prediabetes
CPT/HCPCS: 36415; 80053; 80061; 83036

== ENCOUNTER → 2022-03-09 16:57 | Outpatient (CLI) | payer BC, SELFPAY ==
[2020-09-17 21:28] VITALS: BMI 30.9
[2022-03-15 10:25] LABS: Percent Free Testosterone 1.37 % (1.50-4.20); Testosterone Free 3.74 ng/dL (5.00-21.00)
[2022-03-24 17:35] LABS: Vitamin D 25 Hydroxy (D3) 54.2 ng/mL (30.0-100.0)
== END ==
PROVIDERS: PCP Family Medicine; Referring Provider Family Medicine; Visit Provider Family Medicine
DX: N52.9 Male erectile dysfunction, unspecified (principal); E55.9 Vitamin D deficiency, unspecified
CPT/HCPCS: 36415; 82306; 84402; 84403

== ENCOUNTER → 2022-04-29 09:28 | Outpatient (CLI) | payer BC, SELFPAY ==
[2020-09-17 21:28] VITALS: BMI 30.9
[2022-05-11 10:59] LABS: Testosterone Free 6.62 ng/dL (5.00-21.00); Testosterone Total 264.6 ng/dL (264.0-916.0)
== END ==
PROVIDERS: PCP Family Medicine; Referring Provider Family Medicine; Visit Provider Family Medicine
DX: R79.89 Other specified abnormal findings of blood chemistry (principal)
CPT/HCPCS: 36415; 84402; 84403

== ENCOUNTER → 2022-07-08 07:19 | Outpatient (CLI) | payer BC, SELFPAY ==
[2020-09-17 21:28] VITALS: BMI 30.9
[2022-07-08 08:40] LABS: Cholesterol 229 mg/dL (140-199); HDL Cholesterol 43 mg/dL (40-60); LDL Cholesterol Calculated 146 mg/dL (<100); Triglycerides 200 mg/dL (35-150)
[2022-07-18 09:08] LABS: Percent Free Testosterone 3.42 % (1.50-4.20); Testosterone Free 11.02 ng/dL (5.00-21.00); Testosterone Total 322.1 ng/dL (264.0-916.0)
== END ==
PROVIDERS: PCP Family Medicine; Referring Provider Family Medicine; Visit Provider Family Medicine
DX: E78.2 Mixed hyperlipidemia (principal); R79.89 Other specified abnormal findings of blood chemistry
CPT/HCPCS: 36415; 80061; 84402; 84403

== ENCOUNTER → 2022-10-03 07:59 | Outpatient (CLI) | payer BC, SELFPAY ==
[2020-09-17 21:28] VITALS: BMI 30.9
[2022-10-03 09:22] LABS: Add Manual Diff / Slide Review NO; Basophils Absolute Auto 0 /uL (0-100); Basophils Percent Auto 0.5 % (0-2); Eosinophils Absolute Auto 200 /uL (0-450); Eosinophils Percent Auto 2.8 % (2-4); Hematocrit 43.9 % (41-53); Hemoglobin 14.9 g/dL (13.5-17.5); Lymphocytes Absolute Auto 1300 /uL (1100-4500); Lymphocytes Percent Auto 15.4 % (25-40); Mean Corpuscular Hemoglobin 28.8 PG (26-34); Mean Corpuscular Volume 84.9 fL (80-100); Monocytes Absolute Auto 600 /uL (0-900); Monocytes Percent Auto 7.9 % (3-14); Neutrophils Absolute Auto 6000 /uL (1500-7000); Neutrophils Percent Auto 73.4 % (50-75); Platelet Count 233 X10^3/uL (150-400); Red Blood Cell Count 5.16 X10^6/uL (4.5-5.9); Red Cell Distribution Width 13.5 % (11.6-14.8); White Blood Cell Count 8.1 X10^3/uL (4.5-11.0)
[2022-10-03 09:41] LABS: Alanine Aminotransferase 27 IU/L (<50); Albumin 4.2 g/dL (3.5-5.0); Albumin Globulin Ratio 1.4 (1.0-2.8); Alkaline Phosphatase 46 U/L (38-126); Aspartate Aminotransferase 26 IU/L (17-59); BUN Creatinine Ratio 14.2 (6-22); Bilirubin Total 0.8 mg/dL (0.2-1.3); Blood Urea Nitrogen 18 mg/dL (9-20); Carbon Dioxide 26 mmol/L (22-32); Chloride 100 mmol/L (98-107); Cholesterol 187 mg/dL (140-199); Estimated Glomerular Filt Rate > 60 mL/min (>60); Globulin 3.1 g/dL (1.7-4.1); Glucose 101 mg/dL (70-100); HDL Cholesterol 47 mg/dL (40-60); HEMOLYSIS < 15 (0-50); LDL Cholesterol Calculated 113 mg/dL (<100); Potassium 4.3 mmol/L (3.4-5.1); Sodium 137 mmol/L (137-145); Total Protein 7.3 g/dL (6.3-8.2); Triglycerides 135 mg/dL (35-150)
[2022-10-03 10:13] LABS: Prostate Specific Antigen Scrn 0.648 ng/mL (0.1-4.0)
[2022-10-16 04:22] LABS: Percent Free Testosterone 1.24 % (1.50-4.20); Testosterone Free 2.78 ng/dL (5.00-21.00); Testosterone Total 223.8 ng/dL (264.0-916.0)
== END ==
PROVIDERS: PCP Family Medicine; Referring Provider Family Medicine; Visit Provider Family Medicine
DX: N52.9 Male erectile dysfunction, unspecified (principal); R79.89 Other specified abnormal findings of blood chemistry; E66.9 Obesity, unspecified; E78.2 Mixed hyperlipidemia; I10 Essential (primary) hypertension; Z82.49 Family history of ischemic heart disease and other diseases of the circulatory system; R53.83 Other fatigue; R73.03 Prediabetes; Z12.5 Encounter for screening for malignant neoplasm of prostate
CPT/HCPCS: 36415; 80053; 80061; 84402; 84403; 85025; G0103

== ENCOUNTER → 2023-02-11 11:16 | Outpatient (CLI) | payer BC, SELFPAY ==
[2020-09-17 21:28] VITALS: BMI 30.9
--- NOTE | 2023-02-11 11:17 | DI.MRI.S_ITS ---
PROCEDURE: MR ELBOW RT WO CON INDICATIONS: RIGHT ELBOW PAIN TECHNIQUE: Noncontrast coronal proton density fast spin echo and T2 fast spin echo with fat saturation, axial and sagittal T1 spin echo and T2 fast spin echo with fat saturation through the elbow. COMPARISON: [facility], CR, XR ELBOW 1 OR 2 VIEWS RIGHT, 01/17/2023, 10:07. FINDINGS: Image quality: Excellent. Lateral structures: The lateral ulnar collateral ligament and radial collateral ligament both appear intact. The overlying common extensor tendon demonstrates moderate tendinosis and low-grade partial intrasubstance tearing at the origin.. Medial structures: The ulnar collateral ligament appears intact. The overlying common flexor tendon appears normal. The ulnar nerve appears normal in size and signal within the cubital tunnel. Anterior structures: Mild insertional tendinosis of the distal biceps tendon. The distal brachialis insertion is intact. No bicipitoradial bursal fluid. The median and radial neurovascular bundles appear normal; no focal muscle atrophy to suggest nerve impingement. Posterior structures: The conjoint triceps tendon from the long and lateral heads appears intact. The medial head of the triceps tendon also appears normal, with direct muscle insertion onto the olecranon. No olecranon bursal fluid. Bone and cartilage: No bone marrow contusions or fractures. No osteochondral injuries. IMPRESSION: 1. Low-grade partial tearing of the common extensor tendon at the origin superimposed on moderate tendinosis. 2. Mild insertional tendinosis of the distal biceps tendon. Approved by: Landen Vega M.D. on 02/13/2023 at 11:27
== END ==
PROVIDERS: PCP Family Medicine; Referring Provider Orthopaedic Surgery; Visit Provider Orthopaedic Surgery
DX: S53.431A Radial collateral ligament sprain of right elbow, initial encounter (principal); S56.511A Strain of other extensor muscle, fascia and tendon at forearm level, right arm, initial encounter; X58.XXXA Exposure to other specified factors, initial encounter
CPT/HCPCS: 73221

== ENCOUNTER → 2024-02-15 06:53 | Outpatient (CLI) | payer BC, SELFPAY ==
[2020-09-17 21:28] VITALS: BMI 30.9
[2024-02-15 08:09] LABS: Add Manual Diff / Slide Review NO; Basophils Absolute Auto 100 /uL (0-100); Basophils Percent Auto 1.1 % (0-2); Eosinophils Absolute Auto 200 /uL (0-450); Eosinophils Percent Auto 3.5 % (2-4); Hematocrit 41.5 % (41-53); Lymphocytes Absolute Auto 1700 /uL (1100-4500); Lymphocytes Percent Auto 27.8 % (25-40); Mean Corpuscular HGB Conc 33.7 % (30-36); Mean Corpuscular Hemoglobin 29.3 PG (26-34); Mean Corpuscular Volume 86.9 fL (80-100); Monocytes Absolute Auto 600 /uL (0-900); Monocytes Percent Auto 9.6 % (3-14); Neutrophils Absolute Auto 3500 /uL (1500-7000); Platelet Count 235 X10^3/uL (150-400); Red Blood Cell Count 4.77 X10^6/uL (4.5-5.9); Red Cell Distribution Width 13.8 % (11.6-14.8)
[2024-02-15 08:46] LABS: BUN Creatinine Ratio 14.4 (6-22); Blood Urea Nitrogen 17 mg/dL (9-20); Calcium 8.7 mg/dL (8.4-10.2); Carbon Dioxide 24 mmol/L (22-32); Chloride 109 mmol/L (98-107); Cholesterol 171 mg/dL (140-199); Estimated Glomerular Filt Rate > 60 mL/min (>60); Glucose 107 mg/dL (80-110); HDL Cholesterol 46 mg/dL (40-60); HEMOLYSIS < 15 (0-50); LDL Cholesterol Calculated 98 mg/dL (<100); Potassium 4.8 mmol/L (3.4-5.1); Sodium 138 mmol/L (137-145); Triglycerides 133 mg/dL (35-150)
[2024-02-15 09:16] LABS: Prostate Specific Antigen 0.927 ng/mL (0.10-4.00)
== END ==
PROVIDERS: PCP Family Medicine; Referring Provider Family Medicine; Visit Provider Family Medicine
DX: R79.89 Other specified abnormal findings of blood chemistry (principal); R53.83 Other fatigue; K76.0 Fatty (change of) liver, not elsewhere classified; I10 Essential (primary) hypertension; E78.2 Mixed hyperlipidemia; R73.03 Prediabetes; Z82.49 Family history of ischemic heart disease and other diseases of the circulatory system; Z79.899 Other long term (current) drug therapy
CPT/HCPCS: 36415; 80048; 80061; 84153; 84402; 84403; 85025

== ENCOUNTER → 2024-04-18 09:15 | Outpatient (CLI) | payer BC, SELFPAY ==
[2020-09-17 21:28] VITALS: BMI 30.9
--- NOTE | 2024-04-18 09:16 | DI.NM.S_ITS ---
PROCEDURE: NM JERILYN PERF SPECT REST & STR Rest and exercise myocardial perfusion SPECT with gated imaging and ejection fraction RADIOPHARMACEUTICAL: 11.7 mCi Tc-99m sestamibi IV at rest and 24.3 mCi Tc-99m sestamibi IV at peak exercise. A 1 day-protocol was performed. INDICATIONS: FRIAS PQRS ATTESTATIONS: Measure 322 - Is this imaging test primarily performed on a low-risk surgery patient for preoperative evaluation within 30 days preceding their low-risk non-cardiac surgery? Low-risk surgery is defined as cardiac or myocardial infarction less than 1%, including (but not limited to) endoscopic procedures, superficial procedures, cataract surgery, and excisional breast surgery: Answer: No Measure 323 - Is this imaging test performed primarily for the monitoring of an asymptomatic patient who had percutaneous coronary intervention on the visit date or within 2 years of the visit date? Answer: No Measure 324 - Is this imaging test performed primarily for the initial detection and risk assessment on an asymptomatic, low coronary heart disease patient? Low CHD risk definition = clinicians should consider the maximum number of available patient factors used to estimate risk based on [place] (ATP III criteria), typically age, gender, diabetes, smoking status, and use of blood pressure medication, and integrate age appropriate estimates for missing elements, such as LDL or standard blood pressure. Answer: No TECHNIQUE: Radiopharmaceutical was injected at peak stress test, and also at rest. SPECT images were obtained. SPECT myocardial perfusion images were displayed in short axis, horizontal long axis, and vertical long axis views. Gated images were reviewed using [employer] software. COMPARISON: None. CARDIAC STRESS: A standard Rudolph treadmill exercise tolerance test was performed by the patient under the supervision of an attending staff. The patient exercised for 6 minutes and 1 seconds; functional aerobic impairment (MATILDA) is 26%. Hemodynamic data: There is normal blood pressure and heart rate response to exercise stress. Patient achieved 92% of maximum predicted heart rate at peak exercise. Symptoms: Patient denied chest pain during exercise. EKG: No diagnostic EKG changes of ischemia; no ectopy. FINDINGS: Raw data: There is good myocardial labeling by radiotracer. No significant motion artifacts. Kdwc-zv-cymwn ratio is 0.25 (normal is less than 0.38 for sestamibi tracer, and less than 0.50 for thallium tracer). Left ventricle function: Gated images demonstrate normal left ventricle wall thickening. No segmental wall motion abnormality. No transient ischemic dilation; TID is 0.74 (normal less than 1.3). The left ventricle resting end-diastolic volume is 71 mL. Left ventricle stress ejection fraction is 88; normal values are above 45%. Myocardial perfusion: There is moderate hypoperfusion noted in the inferior segment on rest images. However, no perfusion defects were noted in the stress nor prone images. This most likely represents artifact. IMPRESSION: 1. Negative exercise myocardial perfusion scan for ischemia and infarction. 2. Below average exercise tolerance. Dictated by: Dwaine Donovan M.D. on 04/18/2024 at 16:48 Approved by: Dwaine Donovan M.D. on 04/18/2024 at 16:52
== END ==
LOC: NUCM 09:16
PROVIDERS: PCP Family Medicine; Referring Provider Family Medicine; Visit Provider Family Medicine
DX: R06.09 Other forms of dyspnea (principal)
CPT/HCPCS: 78452; 93017; A9502

== ENCOUNTER → 2024-06-28 10:45 | Outpatient (CLI) | payer BC, SELFPAY ==
[2020-09-17 21:28] VITALS: BMI 30.9
== END ==
PROVIDERS: PCP Family Medicine; Visit Provider Nurse Practitioner Family
DX: R05.1 Acute cough (principal)
CPT/HCPCS: 87070

== ENCOUNTER → 2024-07-15 15:21 | Outpatient (CLI) | payer BC, SELFPAY ==
[2020-09-17 21:28] VITALS: BMI 30.9
== END ==
PROVIDERS: PCP Family Medicine; Visit Provider Student in an Organized Health Care Education/Training Program
DX: H60.90 Unspecified otitis externa, unspecified ear (principal)
CPT/HCPCS: 87070; 87077; 87147; 87186; 87205

== ENCOUNTER → 2024-12-20 06:55 | Outpatient (CLI) | payer BC, SELFPAY ==
[2020-09-17 21:28] VITALS: BMI 30.9
[2024-12-20 07:34] LABS: Add Manual Diff / Slide Review NO; Basophils Absolute Auto 100 /uL (0-100); Basophils Percent Auto 1.1 % (0-2); Eosinophils Absolute Auto 200 /uL (0-450); Eosinophils Percent Auto 3.8 % (2-4); Hemoglobin 14.4 g/dL (13.5-17.5); Lymphocytes Absolute Auto 1700 /uL (1100-4500); Lymphocytes Percent Auto 32.6 % (25-40); Mean Corpuscular HGB Conc 34.3 % (30-36); Mean Corpuscular Hemoglobin 29.6 PG (26-34); Mean Corpuscular Volume 86.4 fL (80-100); Monocytes Absolute Auto 500 /uL (0-900); Monocytes Percent Auto 9.6 % (3-14); Neutrophils Absolute Auto 2700 /uL (1500-7000); Neutrophils Percent Auto 52.9 % (50-75); Platelet Count 216 X10^3/uL (150-400); Red Blood Cell Count 4.86 X10^6/uL (4.5-5.9); Red Cell Distribution Width 13.7 % (11.6-14.8); White Blood Cell Count 5.2 X10^3/uL (4.5-11.0)
[2024-12-20 07:47] LABS: Hemoglobin A1C% w Est Avg Glu 5.8 % (4.0-6.0)
[2024-12-20 07:56] LABS: Alanine Aminotransferase 29 IU/L (<50); Albumin 4.2 g/dL (3.5-5.0); Albumin Globulin Ratio 1.6 (1.0-2.8); Alkaline Phosphatase 47 U/L (38-126); Aspartate Aminotransferase 28 IU/L (17-59); BUN Creatinine Ratio 16.7 (6-22); Bilirubin Total 0.7 mg/dL (0.2-1.3); Blood Urea Nitrogen 20 mg/dL (9-20); Calcium 9.5 mg/dL (8.4-10.2); Carbon Dioxide 20 mmol/L (22-32); Chloride 110 mmol/L (98-107); Cholesterol 181 mg/dL (140-199); Estimated Glomerular Filt Rate > 60 mL/min (>60); Globulin 2.7 g/dL (1.7-4.1); Glucose 122 mg/dL (70-99); HDL Cholesterol 45 mg/dL (40-60); HEMOLYSIS < 15 (0-50); LDL Cholesterol Calculated 107 mg/dL (<100); Potassium 4.7 mmol/L (3.4-5.1); Sodium 138 mmol/L (137-145); Total Protein 6.9 g/dL (6.3-8.2); Triglycerides 145 mg/dL (35-150)
[2024-12-20 08:23] LABS: Prostate Specific Antigen Scrn 0.807 ng/mL (0.1-4.0)
== END ==
PROVIDERS: PCP Family Medicine; Referring Provider Family Medicine; Visit Provider Family Medicine
DX: E78.2 Mixed hyperlipidemia (principal); R73.03 Prediabetes; Z12.5 Encounter for screening for malignant neoplasm of prostate; I10 Essential (primary) hypertension; K76.0 Fatty (change of) liver, not elsewhere classified
CPT/HCPCS: 36415; 80053; 80061; 83036; 85025; G0103

== ENCOUNTER 2025-03-09 17:49 | Emergency (ER) | payer BC, SELFPAY ==
[2020-09-17 21:28] VITALS: BMI 30.9
[2025-03-09 18:29] VITALS: BP 145/76; PULSE 94; RESP 16; TEMP 36.6; O2SAT 97; BMI 32.5
--- NOTE | 2025-03-09 18:33 | DI.RAD.S_ITS ---
PROCEDURE: XR WRIST LT MIN 3V INDICATIONS: fall, injury TECHNIQUE: 4 views of the wrist were acquired. COMPARISON: None. FINDINGS: Bones: There is a comminuted fracture of the distal radius, with mild impaction. There is intra-articular involvement. No additional fracture is identified. No navicular fractures are seen. No radiocarpal dislocation can be seen. Age-appropriate bony degenerative changes are seen. Soft tissues: No suspicious soft tissue calcifications. IMPRESSION: Comminuted fracture of the distal radius, with intra-articular involvement. Dictated by: Jori Valenzuela M.D. on 03/09/2025 at 17:58 Approved by: Jori Valenzuela M.D. on 03/09/2025 at 17:59
[2025-03-09] MEDS: OXYCODONE/ACETAMINOPHEN 5/325 TABLET 2 TAB PO (18:34)
[2025-03-09 20:49] VITALS: BP 134/82; PULSE 71; TEMP 36.4; O2SAT 93
[2025-03-10 00:34] VITALS: BP 149/90; PULSE 69; RESP 14; O2SAT 98
--- NOTE | 2025-03-10 01:02 | ED_ITS ---
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 No significant pain on palpation of the wrist but hurts with any movement of the wrist. No pain to the fingers or proximal forearm, elbow, upper arm, shoulder. Denies head or neck face pain. MD complaint: injury to: left Related Data Home Medications ?Medication ?Instructions ?Recorded ?Confirmed cholecalciferol (vitamin D3) 125 5,000 unit PO DAILY 0 09/17/20 01/03/25 mcg (5,000 unit) tablet (Vitamin D3) ascorbate calcium (vitamin C) 500 500 mg PO DAILY PRN 01/03/25 01/03/25 mg tablet coQ10 (ubiquinol) 100 mg capsule 100 mg PO DAILY 01/0301/03/25 (Qunol Alex CoQ10) Previous Rx's ?Medication ?Instructions ?Recorded semaglutide (weight loss) 0.25 0.25 mg (0.5 mL) SUBCUT QWEEK #2 mL 01/08/25 mg/0.5 mL subcutaneous pen injector (Wegovy) ezetimibe 10 mg tablet 10 mg PO DAILY #90 tabs 01/29 losartan 50 mg tablet 50 mg PO DAILY for blood pre ssure 01/10/25 #90 tabs hydrocodone 5 mg-acetaminophen 325 1 tab PO Q6H PRN pa in #10 tabs 03/10/25 mg tablet Allergies Allergy/AdvReac Type Severity Reaction Status Date / Time simvastatin AdvReac Intermediate Muscle Pain Verified 03/09/25 18:29 Patient History Medical History (Updated 03/10/25 @ 01:24 by Yony Starr MD) BMI 34.0-34.9,adult Obese FRIAS (dyspnea on exertion) Memory changes Upper extremity somatic dysfunction Right elbow pain Skin tags, multiple acquired Acute costochondritis Low testosterone in male Vitamin D deficiency Erectile dysfunction Fatigue Respiratory infection Seasonal allergies Snoring Cholelithiasis Cholelithiasis and cholecystitis without obstruction Shoulder pain (~2017) Fractures (~1994) Tinnitus (~2013) Mixed dyslipidemia Asthma (~1962) Essential hypertension No active medical problems Surgical History Anesthesia History of sinus surgery (~2011) History of umbilical hernia repair (~2009) History of knee surgery Family History Father History of heart disease Mother Diabetes mellitus Social History household members: spouse Tobacco: How many years used: 5 alcohol intake: current (1 drink per day ) substance use type: does not use Smoking Status: Never smoker alcohol intake frequency: a few times a month Exam Narrative Exam Narrative: GENERAL: Well-developed patient, in mild distress. HEAD: Atraumatic. Normocephalic. EYES: Pupils equal round and reactive. Extraocular motions intact. No scleral icterus. No injection or drainage. ENT: Nose without bleeding, purulent drainage. Airway patent. No obvious facial trauma. NECK: Trachea midline. Moves neck well. CARDIOVASCULAR: Regular rate and rhythm without murmurs, gallops, or rubs. RESPIRATORY: Clear to auscultation. Breath sounds equal bilaterally. No wheezes, rales, or rhonchi. GASTROINTESTINAL: Abdomen soft, non-tender, nondistended. EXTREMITIES: Minimal tenderness to left distal radius without gross deformity, but painful with any attempted movment of the left wrist. BACK: Nontender without deformity or crepitance. No flank tenderness. NEURO: AOx3. Motor functions grossly nonfocal. SKIN: No rash or erythema of visible areas Initial Vital Signs Initial Vital Signs: Vital Signs Temperature 97.9 F 03/09/25 18:29 Pulse Rate 94 H 03/09/25 18:29 Respiratory Rate 16 03/09/25 18:29 Blood Pressure 145/76 H 03/09/25 18:29 Pulse Oximetry 97 03/09/25 18:29 Oxygen Delivery Method Room Air 03/09/25 18:29 Course Orders Ordered: Discontinued Medications Hydrocodone Bitart/Acetaminophen (Hydrocodone/Acet 5/325 Prepack) 1 bottle MISC DIRECTED ONE Stop: 03/10/25 01:14 Last Admin: 03/10/25 01:53 Dose: 1 bottle Documented By: RANDI Oxycodone/Acetaminophen (Oxycodone/Acetaminophen 5/325 Tablet) 2 tab PO NOW ONE Stop: 03/09/25 18:33 Last Admin: 03/09/25 18:34 Dose: 2 tab Documented By: BT Vital Signs Vital signs: Vital Signs - 8 hr 03/09/25 18:29 03/09/25 20:49 03/10/25 00:34 Temperature 97.9 F 97.5 F L Pulse Rate 94 H 71 69 Respiratory Rate 16 14 Blood Pressure 145/76 H 134/82 149/90 H Pulse Oximetry 97 93 98 Oxygen Delivery Method Room Air Room Air Room Air MDM - Extremity Injury (Upper) MDM Narrative Medical decision making narrative: 64-year-old male had ground level fall with 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 Left wrist pain swelling. XRay from triage showed comminuted but well aligned intraarticular distal radius fracture. Placed into sugartong spling, good cap refill afterward. Sling applied. FU with local ortho, contact info given for office of Dr Mccray on-call, if they cannot get into the office of their [facility] orthopedist this week. Homepack hydrocodone/APAP. Home with family. Discharge Plan Departure Patient Disposition: Home Clinical Impression: Fracture of left distal radius Activity Restrictions/Additional Instructions: Ground level fall with persisting left wrist pain. Worse pain with any movement. X-ray showed comminuted (multiple fragments) intra-articular (into the joint) fracture of the distal radius bone of the forearm at the wrist joint. There was no angulation to require any manipulation today. But the fractured bone was placed in a sugar-tong type immobilization splint, with sling. Follow up with Orthopedic surgery, possible surgical fixation versus closed cast treatment. You stated that you would likely would follow up with [facility], however you also could call local orthopedic surgeon Dr. Mccray on- call, her contact clinic information provided below. Call the office of whichever orthopedic surgeon you choose tomorrow, to coordinate close follow up care and further management of this fracture. Take pain medication as needed. Return earlier to this/nearest emergency department for any change worsening symptoms or any concerns prior. Prescriptions: New hydrocodone-acetaminophen 5-325 mg tablet 1 tab PO Q6H PRN (Reason: pain) Qty: 10 0RF No Action Wegovy 0.25 mg/0.5 mL pen injector 0.25 mg SUBCUT QWEEK Qty: 2 0RF Rx Instructions: administer weeks 1 through 4 of therapy ezetimibe 10 mg tablet 10 mg PO DAILY Qty: 90 0RF losartan 50 mg tablet 50 mg PO DAILY Qty: 90 0RF coQ10 (ubiquinol) [Qunol Alex CoQ10] 100 mg capsule 100 mg PO DAILY cholecalciferol (vitamin D3) [Vitamin D3] 125 mcg (5,000 unit) Tablet 5,000 unit PO DAILY ascorbate calcium (vitamin C) 500 mg tablet 500 mg PO DAILY PRN Referrals: Iris Mccray DO [Physician, Orthopedic Surgery] Branden He DO [Primary Care Provider, Family Practice] Stand Alone Forms: Patient Portal/API
[2025-03-10] MEDS: HYDROCODONE/ACET 5/325 PREPACK 1 BOTTLE MISC (01:53)
== END 2025-03-10 02:04 | disposition home or self-care (01) ==
PROVIDERS: Emergency Provider Emergency Medicine; PCP Family Medicine
DX: S52.502A Unspecified fracture of the lower end of left radius, initial encounter for closed fracture (principal); W01.0XXA Fall on same level from slipping, tripping and stumbling without subsequent striking against object, initial encounter
CPT/HCPCS: 29105; 73110; 99283